=== PATIENT | male | born 1960 | race Caucasian/White ===

== ENCOUNTER 2020-07-13 10:15 | Outpatient (CLI) | payer OTHER, SELFPAY ==
[2020-07-15 19:01] LABS: PSA, Free 1.28 ng/mL; PSA, Total 8.1 ng/mL (<=4.0); Percent Free Prostate Spec Ag 16 % (>25)
== END 2020-07-13 10:16 | disposition home or self-care (01) ==
LOC: ANHLAB 10:18
PROVIDERS: PCP Family Medicine; Visit Provider Urology
DX: R97.20 Elevated prostate specific antigen [PSA] (principal)
CPT/HCPCS: 36415; 84153; 84154